=== PATIENT | female | born 1940 | race African-American/Black ===

== ENCOUNTER 2019-11-19 06:26 | Emergency (ER) | payer MEDICARE ==
[~2019-11-19] VITALS: Ht 162.6 cm; Wt 80.7 kg
--- NOTE | 2019-11-19 07:05 | NUR ---
assumed care of pt
--- NOTE | 2019-11-19 08:18 | Diagnostic Imaging Report ---
EXAMINATION: CXR 2 VIEW - HOPD INDICATION: COUGH X1 WEEK COMPARISON: None FINDINGS: PA and lateral views TUBES and LINES: None. LUNGS: Lungs are well inflated. Curvilinear right hilar opacity is likely atelectasis. There is no focal consolidation. There is no evidence of pulmonary edema. PLEURA: No pleural effusion or pneumothorax. HEART AND MEDIASTINUM: The cardiomediastinal silhouette is unremarkable. BONES AND SOFT TISSUES: No acute osseous lesion. Soft tissues are unremarkable. UPPER ABDOMEN: No free air under the diaphragm. IMPRESSION: Curvilinear right hilar opacity is likely atelectasis. No focal consolidation Signed by: Miles Veronica MD on 11/19/2019 8:16 AM
[2019-11-19 08:22] VITALS: BP 162/74
== END 2019-11-19 08:26 | disposition home or self-care (01) ==
LOC: FSED 06:26
DX: R05 Cough (principal); J20.9 Acute bronchitis, unspecified; I10 Essential (primary) hypertension; E11.9 Type 2 diabetes mellitus without complications; E07.9 Disorder of thyroid, unspecified
CPT/HCPCS: 71046; 99283

== ENCOUNTER 2024-12-15 09:14 | Emergency (ER) | payer MEDICARE ==
[~2024-12-15] VITALS: Ht 165.1 cm; Wt 54.4 kg
[~2024-12-15 09:14] MED LIST: HYDROCHLOROTHIA25 MG PO; LEVOFLOXACIN500 MG PO; LOSARTAN POTAS100 MG PO; NORVASC2.5 MG PO
[2024-12-15 09:20] VITALS: PULSE 66; RESP 15; TEMP 98
[2024-12-15 10:29] LABS: CLARITY,URINE TURBID (CLEAR); COLOR,URINE YELLOW (YELLOW); LEUKOCYTE ESTERASE ,URINE MODERATE (NEGATIVE); NITRITE,URINE NEGATIVE (NEGATIVE); PH,URINE 5.5 (5 - 7)
[2024-12-15 10:30] LABS: BACTERIA,URINE MODERATE /HPF; BILIRUBIN,URINE NEGATIVE (NEGATIVE); EPITHELIAL CELLS,URINE FEW /LPF; GLUCOSE, URINE NEGATIVE (NEGATIVE); KETONES,URINE NEGATIVE (NEGATIVE); PROTEIN,URINE DIPSTICK 1+ (NEGATIVE); RBC,URINE 0-5 /HPF (0-5); URINE UROBILINOGEN 0.2 mg/dL (0.2 - 1); WBC,URINE (MAN) >50 /HPF (0-5)
[2024-12-15] MEDS ORDERED: CEFDINIR300 MG PO (10:45)
[2024-12-15 11:17] VITALS: BP 138/60; PULSE 65; RESP 16; TEMP 98; O2SAT 99
== END 2024-12-15 11:10 | disposition home or self-care (01) ==
LOC: ER 09:19
DX: R30.0 Dysuria (principal); N39.0 Urinary tract infection, site not specified; I10 Essential (primary) hypertension; E11.9 Type 2 diabetes mellitus without complications; I48.91 Unspecified atrial fibrillation; E03.9 Hypothyroidism, unspecified; I25.10 Atherosclerotic heart disease of native coronary artery without angina pectoris; E78.5 Hyperlipidemia, unspecified; K21.9 Gastro-esophageal reflux disease without esophagitis; M54.9 Dorsalgia, unspecified; G89.29 Other chronic pain
CPT/HCPCS: 81001; 87086; 87186; 99283